=== PATIENT | female | born 1960 | race Caucasian/White ===

== ENCOUNTER 2021-01-07 22:39 | Emergency (ER) | payer OTHER ==
[2021-01-07] MEDS ORDERED: Cyclobenzaprine 10 MG TAB ONE (22:56)
== END 2021-01-07 23:00 | disposition home or self-care (01) ==
LOC: NAV ERS 22:39
DX: S76.911A Strain of unspecified muscles, fascia and tendons at thigh level, right thigh, initial encounter (principal); X50.0XXA Overexertion from strenuous movement or load, initial encounter
CPT/HCPCS: 99283